=== PATIENT | female | born 1990 | race Caucasian/White ===

== ENCOUNTER 2021-07-07 08:57 | Emergency (ER) | payer BC, SELFPAY ==
[2021-07-07 09:10] VITALS: BP 115/71; PULSE 83; RESP 16; TEMP 36
--- NOTE | 2021-07-07 09:29 | ED.URI ---
HPI - URI/Sore Throat General Chief Complaint: Upper Respiratory Infection Stated Complaint: Sore throat Related Data Allergies Allergy/AdvReac Type Severity Reaction Status Date / Time aripiprazole Allergy Intermediate Swelling Verified 07/07/21 09:25 Review of Systems Review of Systems: CONSTITUTIONAL: Denies fever, chills, or sweats. EYES: Denies visual changes, redness, or discharge. ENT: Denies rhinorrhea, congestion, report sore throat, or otalgia. CARDIOVASCULAR:Denies chest pain, palpitations, or edema. RESPIRATORY: Denies cough or dyspnea. GASTROINTESTINAL: Denies abdominal pain, nausea, vomiting, or diarrhea. GENITOURINARY: Denies dysuria or hematuria. SKIN:[Denies rash or itching. MUSCULOSKELETAL:Denies back pain, joint pain, or myalgia. NEUROLOGIC: Denies headache, numbness, or weakness. PSYCHIATRIC:Denies anxiety or depression PMFSH Comments At time as signature, I have reviewed and agree with nursing past medical, social, surgical and family history. Please see nursing chart for further information. There is no relevant family history pertinent to the presenting complaint. Exam Narrative: GENERAL:Well-appearing, well-nourished, and in no acute distress. HEAD:Normocephalic, atraumatic. EYES: PERRLA and EOMI. ENT: Nares clear, no rhinorrhea or epistaxis. Mucous membranes moist. Pharyngeal erythema with edema bilaterally patient states that her tonsils were removed NECK: Supple. CHEST: Clear to auscultation. No respiratory distress. HEART: Regular rate and rhythm. Normal peripheral pulses. ABDOMEN: Soft, nontender, nondistended, normal active bowel sounds. EXTREMITIES: Normal range of motion. No edema. SKIN: Warm, dry, no rash. NEURO: No focal deficits. Alert and oriented x3. Course Vital Signs Vital signs: Vital Signs Temperature 96.8 F L 07/07/21 09:10 Pulse Rate 83 07/07/21 09:10 Respiratory Rate 16 07/07/21 09:10 Blood Pressure 115/71 07/07/21 09:10 Temperature 96.8 F L 07/07/21 09:10 Pulse Rate 83 07/07/21 09:10 Respiratory Rate 16 07/07/21 09:10 Blood Pressure 115/71 07/07/21 09:10 MDM - URI/Sore Throat Lab Data Labs: Strep Screen Presumptive Negative *(Reference Range: Negative)* Discharge Plan Discharge Clinical Impression: Pharyngitis Qualifiers: Pharyngitis/tonsillitis etiology: streptococcus Qualified Code(s): J02.0 - Streptococcal pharyngitis Patient Disposition: Home, Self-Care Condition: Stable Instructions: Antibiotic Form, Pharyngitis (ED), Strep Throat (DC), Tonsillitis (ED) Additional Instructions: Take the medication as prescribed. Salt water gargles and/or may use topical anesthetic (eg. Chloraseptic spray) Take tylenol and ibuprofen as needed for pain and fever as directed. Throw away the toothbrush after 24hours of antibiotic. Follow up with primary care provider in 2-3 days if condition is not improving or seek ER visit if your child starts breathing fast/has trouble breathing, is not drinking enough fluids, will not wake up or will not interact with you. Prescriptions: New amoxicillin 500 mg capsule 500 mg PO Q12H 7 Days Qty: 14 RF: 0 prednisone 20 mg tablet 20 mg PO DAILY Qty: 3 RF: 0 ibuprofen 600 mg tablet 600 mg PO TID PRN (Reason: fever or pain) Qty: 20 RF: 0 Follow-up/Referrals: PHYSICIAN NOT ON STAFF,NONSTAFF [Primary Care Provider] - Stand Alone Forms: Work/School Release IP Time of Disposition: 09:36
== END 2021-07-07 10:10 | disposition home or self-care (01) ==
PROVIDERS: Emergency Provider Nurse Practitioner Family
DX: J02.0 Streptococcal pharyngitis (principal)
CPT/HCPCS: 87081; 87880; 99213; G0463